=== PATIENT | male | born 1990 | race African-American/Black ===

== ENCOUNTER 2020-09-07 20:05 | Emergency (ER) | payer SELFPAY ==
[2020-09-07] MEDS ORDERED: Ibuprofen 800 MG TAB ONE (20:25)
== END 2020-09-07 20:32 | disposition home or self-care (01) ==
LOC: ERS 20:05
DX: H60.91 Unspecified otitis externa, right ear (principal); F17.200 Nicotine dependence, unspecified, uncomplicated
CPT/HCPCS: 99282

== ENCOUNTER 2020-09-09 17:19 | Emergency (ER) | payer SELFPAY | END 2020-09-09 19:27 | disposition home or self-care (01) | LOC: ERS 17:19 | DX: H10.9 Unspecified conjunctivitis (principal); F17.200 Nicotine dependence, unspecified, uncomplicated | CPT/HCPCS: 99282 ==

== ENCOUNTER 2023-12-02 20:30 | Emergency (ER) | payer BC, OTHER, SELFPAY ==
[2023-12-02] MEDS ORDERED: Ondansetron PF 4 MG/2 ML Vial ONE (20:42)
[2023-12-02 20:46] LABS: #Basophils Less than 0.03 10x3/uL (0.0-0.2); %Eosinophils 0.8 % (0.0-10.0); %Lymphocytes 25.6 % (21.0-51.0); %Monocytes 12.8 % (0.0-10.0); %Neutrophils 60.5 % (42.0-75.0); Hemoglobin 13.3 g/dL (14.0-18.0); Mean Corpuscular HGB CONC 35.9 g/dL (32.0-36.0); Mean Corpuscular Hemoglobin 30.8 pg (27.0-31.0); Mean Corpuscular Volume 85.6 fL (78.0-98.0); Mean Platelet Volume 9.8 fL (7.4-10.4); Platelet Count 241 10x3/uL (130-400); Red Blood Cell (RBC) Count 4.32 mill/uL (4.70-6.10)
[2023-12-02 21:08] LABS: ALT (SGPT) 20 U/L (8-55); AST (SGOT) 18 U/L (5-34); Albumin 3.7 g/dL (3.5-5.0); Alkaline Phosphatase 63 U/L (40-110); Anion Gap 17 mmol/L (10-20); BUN (Urea Nitrogen) 8 mg/dL (8.9-20.6); Bilirubin, Total 0.8 mg/dL (0.2-1.2); CK (CPK) 124 U/L (30-200); Calc. Creatinine Clearance 0 mL/min (70-130); Calcium 8.8 mg/dL (7.8-10.44); Carbon Dioxide 19 mmol/L (22-29); Chloride 105 mmol/L (98-107); Estimated GFR 92; Globulin 2.6 g/dL (2.4-3.5); Glucose 122 mg/dL (70-105); Magnesium 1.8 mg/dL (1.6-2.6); Protein, Total 6.3 g/dL (6.0-8.3); Sodium 138 mmol/L (136-145)
[2023-12-02 21:09] LABS: Acetaminophen Less than 10 mcg/mL (10.0-30.0); Alcohol Less than 10.0 mg/dL (Less than 10); Salicylate Less than 8.0 mg/dL (15.0-30.0)
[2023-12-02 21:13] LABS: Troponin I Less than 0.010 ng/mL (< 0.028)
[2023-12-02 21:44] LABS: Bacteria/HPF None Seen HPF (None Seen); Bilirubin Negative (Negative); Blood, Urine Negative (Negative); CAUTI Indications for Culture Alt mental st,lethar; Clarity Clear (Clear); Glucose, Urine (Dipstick) Normal (Negative); Ketone, Urine 20 mg/dL (Negative); Leukocyte Negative Leu/uL (Negative); Nitrite Negative (Negative); Protein, Urine (Dipstick) 50 mg/dL (Neg-Trace); RBC/HPF None Seen HPF (0-3); Specific Gravity, Urine 1.023 (1.002-1.036); Squamous Epithelial 0-3 HPF (0-3); Urobilinogen Normal mg/dL (Less than 2); WBC/HPF 0-3 HPF (0-3); pH, Urine 5.5 (5.0-9.0)
[2023-12-02 21:45] LABS: Urine Culture Reflex No No
[2023-12-02] MEDS ORDERED: Potassium Chloride 20 MEQ (100 mL) BAG ONE (21:50)
[2023-12-02 21:52] LABS: Amphetamine Detected (NotDetected); Barbiturates Screen Not Detected (NotDetected); Benzodiazepine Screen Not Detected (NotDetected); Cocaine Metabolite Screen Detected (NotDetected); Methadone Not Detected (NotDetected); Methamphetamine Detected (NotDetected); Opiate Screen Not Detected (NotDetected); Oxycodone Screen Not Detected (NotDetected); Phencyclidine (PCP) Not Detected (NotDetected); THC/Cannabinoid Screen Detected (NotDetected); Tricyclic Screen Not Detected (NotDetected)
[2023-12-03] MEDS ORDERED: Potassium Chloride 20 MEQ TAB ONE (02:37)
== END 2023-12-03 02:48 | disposition home or self-care (01) ==
LOC: ERS 20:30
DX: F19.10 Other psychoactive substance abuse, uncomplicated (principal); E87.6 Hypokalemia; R56.9 Unspecified convulsions; F17.210 Nicotine dependence, cigarettes, uncomplicated
CPT/HCPCS: 36415; 70450; 71045; 80053; 80306; 80307; 81001; 82550; 83605; 83735; 84443; 84484; 85025; 93005; 94760; 96374; 96375; J2405; J3480

== ENCOUNTER 2024-06-07 19:21 | Emergency (ER) | payer OTHER ==
[2024-06-07 21:51] LABS: #Basophils Less than 0.03 10x3/uL (0.0-0.2); #Eosinophils Less than 0.03 10x3/uL (0.0-0.7); %Basophils 0.2 % (0.0-1.0); %Eosinophils 0.2 % (0.0-10.0); %Monocytes 15.6 % (0.0-10.0); %Neutrophils 55.8 % (42.0-75.0); Hematocrit 44.3 % (42.0-52.0); Hemoglobin 15.6 g/dL (14.0-18.0); Mean Corpuscular HGB CONC 35.2 g/dL (32.0-36.0); Mean Corpuscular Hemoglobin 29.8 pg (27.0-31.0); Mean Corpuscular Volume 84.7 fL (78.0-98.0); Mean Platelet Volume 10.1 fL (7.4-10.4); Platelet Count 278 10x3/uL (130-400); RBC Distribution Width 13.7 % (11.5-14.5); Red Blood Cell (RBC) Count 5.23 mill/uL (4.70-6.10)
[2024-06-07 22:09] LABS: ALT (SGPT) 17 U/L (Less than 45); AST (SGOT) 25 U/L (11-34); Albumin 4.3 g/dL (3.1-4.5); Alkaline Phosphatase 70 U/L (40-110); Anion Gap 18 mmol/L (10-20); BUN (Urea Nitrogen) 11 mg/dL (8.9-20.6); Bilirubin, Total 1.2 mg/dL (0.3-1.2); CK (CPK) 345 U/L (30-200); Calc. Creatinine Clearance 0 mL/min (70-130); Calcium 9.4 mg/dL (7.8-10.44); Carbon Dioxide 21 mmol/L (22-29); Chloride 105 mmol/L (98-107); Estimated GFR 77; Globulin 3.5 g/dL (2.4-3.5); Glucose 86 mg/dL (70-105); Potassium 3.8 mmol/L (3.5-5.1); Protein, Total 7.8 g/dL (6.0-8.3); Sodium 140 mmol/L (136-145)
[2024-06-07 22:11] LABS: Acetaminophen Less than 10 mcg/mL (Less than 10); Alcohol Less than 10.0 mg/dL (Less than 10); Salicylate Less than 8.0 mg/dL (Less than 8.0)
== END 2024-06-08 04:23 | disposition home or self-care (01) ==
LOC: ERS 19:21
DX: T50.905A Adverse effect of unspecified drugs, medicaments and biological substances, initial encounter (principal); F19.10 Other psychoactive substance abuse, uncomplicated; F17.210 Nicotine dependence, cigarettes, uncomplicated
CPT/HCPCS: 36415; 80053; 80307; 82550; 85025

== ENCOUNTER 2025-03-11 09:55 | Emergency (ER) | payer OTHER ==
[2025-03-11 10:51] LABS: #Basophils Less than 0.03 10x3/uL (0.0-0.2); #Eosinophils 0.07 10x3/uL (0.0-0.7); #Monocytes 0.45 10x3/uL (0.11-0.59); #Neutrophils 1.61 10x3/uL (1.40-6.50); %Basophils 0.3 % (0.0-1.0); %Eosinophils 2.0 % (0.0-10.0); %Lymphocytes 37.9 % (21.0-51.0); %Monocytes 13.0 % (0.0-10.0); %Neutrophils 46.5 % (42.0-75.0); Hematocrit 41.2 % (42.0-52.0); Hemoglobin 14.2 g/dL (14.0-18.0); Mean Corpuscular Hemoglobin 29.5 pg (27.0-31.0); Mean Corpuscular Volume 85.5 fL (78.0-98.0); Platelet Count 221 10x3/uL (130-400); Red Blood Cell (RBC) Count 4.82 mill/uL (4.70-6.10); White Blood Cell (WBC) Count 3.46 10x3/uL (4.8-10.8)
[2025-03-11 11:10] LABS: Acetaminophen Less than 10 mcg/mL (Less than 10); Salicylate Less than 8.0 mg/dL (Less than 8.0)
[2025-03-11 11:11] LABS: Cocaine Metabolite Screen Negative (Negative); THC/Cannabinoid Screen PRELIM POSITIVE (Negative); Tricyclic Screen Negative (Negative)
[2025-03-11 11:39] LABS: ALT (SGPT) 30 U/L (Less than 45); AST (SGOT) 44 U/L (11-34); Albumin 3.7 g/dL (3.1-4.5); Alkaline Phosphatase 58 U/L (40-110); Anion Gap 15 mmol/L (10-20); BUN (Urea Nitrogen) 11 mg/dL (8.9-20.6); Bilirubin, Total 1.8 mg/dL (0.3-1.2); Calc. Creatinine Clearance 0 mL/min (70-130); Calcium 8.6 mg/dL (7.8-10.44); Carbon Dioxide 24 mmol/L (22-29); Chloride 101 mmol/L (98-107); Globulin 2.9 g/dL (2.4-3.5); Glucose 108 mg/dL (70-105); Potassium 4.2 mmol/L (3.5-5.1); Sodium 136 mmol/L (136-145)
== END 2025-03-11 13:00 | disposition home or self-care (01) ==
LOC: ERS 09:55
DX: E86.0 Dehydration (principal); F15.10 Other stimulant abuse, uncomplicated; F12.10 Cannabis abuse, uncomplicated; R29.700 NIHSS score 0; F17.290 Nicotine dependence, other tobacco product, uncomplicated
CPT/HCPCS: 71045; 80053; 80306; 80307; 84484; 85025; 93005; 96360